=== PATIENT | female | born 1945 | race African-American/Black ===

== ENCOUNTER 2018-03-08 17:21 | Emergency (ER) | payer OTHER, MEDICAID ==
[~2018-03-08] VITALS: Ht 162.6 cm; Wt 60.0 kg
[2018-03-08] MEDS ORDERED: ATOR10TA69 PO (17:27)
[2018-03-08] MEDS ORDERED: ASPI-986 PO (17:27)
[2018-03-08] MEDS ORDERED: SODIUM CHLORIDE 0.9% 1000ML BAG (SEPSIS BOLUS) IV ONE (18:00)
[2018-03-08 18:20] LABS: CHLORIDE 107 mEq/L (98-107)
[2018-03-08 18:25] LABS: EOSINOPHILS % 1.8 % (0.0-5.0); HEMATOCRIT. 33.8 % (36.0-48.0); HEMOGLOBIN. 10.8 g/dL (12.0-16.0); LYMPHOCYTES % 9.3 % (20.0-50.0); MEAN CORPUSCULAR HEMOGLOBIN 27.3 pg (28.0-32.0); MEAN CORPUSCULAR VOLUME 85.1 fL (81.0-99.0); MEAN PLATELET VOLUME 8.5 fl (7.4-10.4); NEUTROPHILS % 77.9 % (40.0-76.0); PLATELET 184 x1000/uL (130-400); RED BLOOD CELL COUNT 3.97 mill/uL (4.2-5.4)
[2018-03-08] MEDS ORDERED: SODIUM CHLORIDE 0.9% 250 ML IV NR (19:10)
[2018-03-08 19:49] LABS: PARTIAL THROMBOPLASTIN TIME 33.6 sec (23.4-31.0); PROTHROMBIN TIME 10.5 sec (9.4-11.6)
[2018-03-08 22:49] VITALS: BP 94/89
== END 2018-03-08 22:51 | disposition home or self-care (01) ==
LOC: ER 17:46
DX: I95.9 Hypotension, unspecified (principal); I12.0 Hypertensive chronic kidney disease with stage 5 chronic kidney disease or end stage renal disease; N18.6 End stage renal disease; E78.00 Pure hypercholesterolemia, unspecified; I44.0 Atrioventricular block, first degree; D63.1 Anemia in chronic kidney disease; J45.909 Unspecified asthma, uncomplicated; Z88.8 Allergy status to other drugs, medicaments and biological substances; Z99.2 Dependence on renal dialysis; W05.0XXA Fall from non-moving wheelchair, initial encounter; Y93.89 Activity, other specified; Y92.89 Other specified places as the place of occurrence of the external cause
CPT/HCPCS: 36415; 70450; 71045; 80053; 83605; 83880; 84484; 85025; 85610; 85730; 86850; 86900; 86901; 87040; 87086; 93005; 99285; J7030

== ENCOUNTER 2018-08-03 15:39 | Inpatient (IN) | payer OTHER, MEDICAID ==
[~2018-08-03] VITALS: Ht 170.2 cm; Wt 78.0 kg
[~2018-08-03 15:39] MED LIST: ASPI-986 PO; ATOR10TA69 PO
[2018-08-03 16:56] LABS: BASOPHILS % 1.2 % (0.0-2.0); EOSINOPHILS % 1.1 % (0.0-5.0); HEMATOCRIT. 40.3 % (36.0-48.0); HEMOGLOBIN. 12.6 g/dL (12.0-16.0); LYMPHOCYTES % 16.5 % (20.0-50.0); MEAN CORPUSCULAR HEMOGLOBIN 28.1 pg (28.0-32.0); MEAN CORPUSCULAR VOLUME 90.2 fL (81.0-99.0); MEAN PLATELET VOLUME 8.9 fl (7.4-10.4); MONOCYTES % 14.8 % (2.0-8.0); NEUTROPHILS % 66.4 % (40.0-76.0); PLATELET 111 x1000/uL (130-400); RED BLOOD CELL COUNT 4.47 mill/uL (4.2-5.4); RED CELL DISTRIBUTION WIDTH 15.4 % (11.6-14.6)
[2018-08-03 17:03] LABS: CHLORIDE 101 mEq/L (98-107)
[2018-08-03 17:05] LABS: BG BASE EXCESS 4.4 mmol/L (-2.0-2.0); BG CARBOXYHEMOGLOBIN 1.2 % (0.5-1.5); BG DEOXYHEMOGLOBIN 38.3 % (0.0-5.0); BG HCO3 ACT 28.6 mmol/L (22.0-26.0); BG OXYGEN SATURATION 61.2 % (92.0-98.5); BG OXYHEMOGLOBIN 60.5 % (94.0-97.0); BG PCO2 40.8 mmHg (35.0-45.0); BG PH 7.463 (7.350-7.450); BG PO2 < 30.3 mmHg (75.0-100.0); BG SAMPLE SITE PA LINE; BG TOTAL HEMOGLOBIN 12.3 g/dL (12.0-18.0); BG VENT MODE ROOM AIR
[2018-08-03] MEDS ORDERED: SODIUM CHLORIDE 0.9% 500 ML IV ONE (17:12)
[2018-08-03] MEDS ORDERED: ALBUTEROL (0.083%) 2.5MG/3ML NEB HHN STA (17:12)
[2018-08-03] MEDS ORDERED: VANCOMYCIN 1 G PREMIX 200 ML IV SCH (17:45)
[2018-08-03] MEDS ORDERED: HYDROMORPHONE HCL/PF 2MG/ML CPJ IV PRN ×2 (19:00→19:30)
[2018-08-03 19:09] LABS: INR 1.1; PROTHROMBIN TIME 11.4 sec (9.1-11.1)
[2018-08-03] MEDS ORDERED: HYDROCODONE/ACETAMINOPHEN 10/325MG TABLET PO PRN (19:30)
[2018-08-03] MEDS ORDERED: ONDANSETRON HCL 4MG/2ML INJ IV PRN (19:30)
[2018-08-03] MEDS ORDERED: MAGNESIUM/ALUMINUM HYDROXIDE/SIMETHICONE 30ML UDC PO PRN (19:30)
[2018-08-03] MEDS ORDERED: CLONIDINE 0.1MG TABLET PO PRN (19:30)
[2018-08-03] MEDS ORDERED: ACETAMINOPHEN 325MG TABLET PO PRN (19:30)
[2018-08-03] MEDS ORDERED: DIPHENHYDRAMINE 50MG/ML VIAL IV PRN (19:30)
[2018-08-03 22:44] VITALS: BP 132/56
[2018-08-04] VITALS (27 sets, daily range): BP systolic 61–126; BP diastolic 17–78
[2018-08-04 06:36] LABS: BASOPHILS % 1.3 % (0.0-2.0); EOSINOPHILS % 1.5 % (0.0-5.0); HEMOGLOBIN. 11.9 g/dL (12.0-16.0); LYMPHOCYTES % 20.4 % (20.0-50.0); MEAN CORPUSCULAR VOLUME 89.5 fL (81.0-99.0); MEAN PLATELET VOLUME 8.7 fl (7.4-10.4); MONOCYTES % 10.8 % (2.0-8.0); PLATELET 124 x1000/uL (130-400); RED BLOOD CELL COUNT 4.24 mill/uL (4.2-5.4); RED CELL DISTRIBUTION WIDTH 15.6 % (11.6-14.6)
[2018-08-04 07:03] LABS: CHLORIDE 100 mEq/L (98-107)
[2018-08-04] MEDS ORDERED: LIDOCAINE HCL 1% 20ML VIAL (Pyxis) INJ ONE (08:36)
[2018-08-04] MEDS ORDERED: TRAMADOL 50MG TABLET PO PRN (08:45)
[2018-08-04] MEDS ORDERED: ALBUTEROL 6.7GM HFA INHALER ORI PRN (08:45)
[2018-08-04] MEDS ORDERED: MIDODRINE HCL 5MG TABLET PO SCH (09:00)
[2018-08-04] MEDS ORDERED: LORATADINE 10MG TABLET PO SCH (09:00)
[2018-08-04] MEDS ORDERED: SEVELAMER CARBONATE 800 MG TABLET PO SCH (09:00)
[2018-08-04] MEDS ORDERED: CALCIUM ACETATE 667MG CAPSULE PO SCH (09:00)
[2018-08-04] MEDS ORDERED: TRAM50TA3 PO (09:54)
[2018-08-04] MEDS ORDERED: MIDO5TAB PO (09:54)
[2018-08-04] MEDS ORDERED: SEVE0.8P MT (09:54)
[2018-08-04] MEDS ORDERED: LEVVL SQ (09:54)
[2018-08-04] MEDS ORDERED: SILV50CR31 TP (09:54)
[2018-08-04] MEDS ORDERED: ALBU90AE INH (09:54)
[2018-08-04] MEDS ORDERED: MIRT15TA6 MT (09:54)
[2018-08-04] MEDS ORDERED: LORA10TA7 MT (09:54)
[2018-08-04] MEDS ORDERED: [UNRECOGNIZED DRUG - CODE] MC (09:54)
[2018-08-04] MEDS ORDERED: CALC667C MT (09:54)
[2018-08-04] MEDS ORDERED: ATOR10TA69 MT (09:54)
[2018-08-04] MEDS ORDERED: CINA30 MT (09:54)
[2018-08-04] MEDS ORDERED: ALBUMIN HUMAN 25GM/100ML (25%) IV NR (10:00)
[2018-08-04 10:42] LABS: BG BASE EXCESS -1.1 mmol/L (-2.0-2.0); BG CARBOXYHEMOGLOBIN 0.4 % (0.5-1.5); BG DEOXYHEMOGLOBIN 0.7 % (0.0-5.0); BG FRACTION INSPIRED OXYGEN 34; BG HCO3 ACT 25.3 mmol/L (22.0-26.0); BG METHEMOGLOBIN 0.3 % (0.0-1.5); BG OXYGEN SATURATION 99.3 % (92.0-98.5); BG OXYHEMOGLOBIN 98.6 % (94.0-97.0); BG PO2 188.8 mmHg (75.0-100.0); BG SAMPLE SITE RIGHT FEMORAL; BG TOTAL HEMOGLOBIN 11.9 g/dL (12.0-18.0); BG VENT MODE NASAL CANNULA
[2018-08-04] MEDS: MIDODRINE HCL 5MG TABLET PO SCH ×2 (13:50→17:29)
[2018-08-04] MEDS ORDERED: DEXTROSE 50% WATER 50ML SYRINGE IV PRN (17:00)
[2018-08-04] MEDS ORDERED: CINACALCET HCL 30MG TABLET PO SCH (17:00)
[2018-08-04] MEDS: INSULIN LISPRO 100 UNITS/ML SUBCUT SCH ×2 (17:06→21:00)
[2018-08-04] MEDS: BLOOD SUGAR DIAGNOSTIC STRIP TEST SCH ×2 (17:06→21:45)
[2018-08-04 19:19] LABS: CREATINE KINASE 245 IU/L (26-192); CREATINE KINASE MB FRACTION 1.5 ng/mL (0.5-3.6)
[2018-08-04 19:21] LABS: T4 FREE 1.02 ng/dL (0.76-1.46)
[2018-08-04] MEDS: PHENYLEPHRINE 40 MG in DEXT 5% WATER 246 ML IV PRN (20:45)
[2018-08-04] MEDS ORDERED: ATORVASTATIN CALCIUM 10MG TABLET PO SCH (21:00)
[2018-08-04] MEDS: MIRTAZAPINE 15MG TABLET PO SCH (21:36)
[2018-08-05] VITALS (86 sets, daily range): BP systolic 46–181; BP diastolic 23–113
[2018-08-05 00:50] LABS: BASOPHILS % 1.4 % (0.0-2.0); EOSINOPHILS % 1.7 % (0.0-5.0); HEMATOCRIT. 36.1 % (36.0-48.0); HEMOGLOBIN. 11.3 g/dL (12.0-16.0); LYMPHOCYTES % 13.4 % (20.0-50.0); MEAN CORPUSCULAR HEMOGLOBIN 27.7 pg (28.0-32.0); MEAN CORPUSCULAR VOLUME 88.5 fL (81.0-99.0); MEAN PLATELET VOLUME 8.8 fl (7.4-10.4); MONOCYTES % 10.7 % (2.0-8.0); NEUTROPHILS % 72.8 % (40.0-76.0); PLATELET 166 x1000/uL (130-400); RED BLOOD CELL COUNT 4.07 mill/uL (4.2-5.4); RED CELL DISTRIBUTION WIDTH 15.5 % (11.6-14.6)
[2018-08-05 00:59] LABS: CHLORIDE 103 mEq/L (98-107)
[2018-08-05 01:07] LABS: CREATINE KINASE 252 IU/L (26-192)
[2018-08-05 01:08] LABS: CREATINE KINASE MB FRACTION 1.4 ng/mL (0.5-3.6)
[2018-08-05] MEDS: PHENYLEPHRINE 40 MG in DEXT 5% WATER 246 ML IV PRN ×3 (06:36→22:51)
[2018-08-05] MEDS: BLOOD SUGAR DIAGNOSTIC STRIP TEST SCH ×4 (07:50→21:00)
[2018-08-05] MEDS: INSULIN LISPRO 100 UNITS/ML SUBCUT SCH ×4 (08:20→21:00)
[2018-08-05] MEDS: LORAZEPAM 2MG/ML CPJ IV PRN ×2 (09:45→16:31)
[2018-08-05] MEDS ORDERED: SODIUM CHLORIDE 0.9% 500 ML IV ONE ×2 (09:45→20:15)
[2018-08-05] MEDS: MIDODRINE HCL 5MG TABLET PO SCH ×3 (10:05→18:06)
[2018-08-05] MEDS ORDERED: SODIUM CHLORIDE 0.9% 500 ML IV NR (10:15)
[2018-08-05 16:06] LABS: CREATINE KINASE 184 IU/L (26-192)
[2018-08-05 16:11] LABS: CREATINE KINASE MB FRACTION 1.2 ng/mL (0.5-3.6)
[2018-08-05] MEDS ORDERED: SODIUM CHLORIDE 0.9% 500 ML IV SCH (17:15)
[2018-08-05] MEDS: MIRTAZAPINE 15MG TABLET PO SCH (21:00)
[2018-08-06] VITALS (93 sets, daily range): BP systolic 48–153; BP diastolic 20–125
[2018-08-06 06:47] LABS: BASOPHILS % 1.2 % (0.0-2.0); EOSINOPHILS % 2.4 % (0.0-5.0); HEMATOCRIT. 37.7 % (36.0-48.0); HEMOGLOBIN. 11.7 g/dL (12.0-16.0); LYMPHOCYTES % 20.2 % (20.0-50.0); MEAN CORPUSCULAR HEMOGLOBIN 27.7 pg (28.0-32.0); MEAN CORPUSCULAR VOLUME 89.2 fL (81.0-99.0); MEAN PLATELET VOLUME 8.9 fl (7.4-10.4); MONOCYTES % 13.4 % (2.0-8.0); NEUTROPHILS % 62.8 % (40.0-76.0); PLATELET 135 x1000/uL (130-400); RED BLOOD CELL COUNT 4.23 mill/uL (4.2-5.4); RED CELL DISTRIBUTION WIDTH 15.5 % (11.6-14.6)
[2018-08-06 07:40] LABS: PHOSPHORUS 4.5 mg/dL (2.5-4.9)
[2018-08-06] MEDS: BLOOD SUGAR DIAGNOSTIC STRIP TEST SCH ×4 (07:48→21:34)
[2018-08-06] MEDS: INSULIN LISPRO 100 UNITS/ML SUBCUT SCH ×4 (07:48→21:00)
[2018-08-06] MEDS: PHENYLEPHRINE 40 MG in DEXT 5% WATER 246 ML IV PRN (09:18)
[2018-08-06] MEDS: MIDODRINE HCL 5MG TABLET PO SCH ×3 (09:23→17:45)
[2018-08-06] MEDS: FLUDROCORTISONE ACETATE 0.1MG TABLET PO SCH (17:45)
[2018-08-06] MEDS: MIRTAZAPINE 15MG TABLET PO SCH (21:28)
[2018-08-07] VITALS (75 sets, daily range): BP systolic 89–206; BP diastolic 21–103
[2018-08-07] MEDS: BLOOD SUGAR DIAGNOSTIC STRIP TEST SCH ×4 (07:50→21:00)
[2018-08-07] MEDS: INSULIN LISPRO 100 UNITS/ML SUBCUT SCH ×4 (08:20→21:00)
[2018-08-07] MEDS: FLUDROCORTISONE ACETATE 0.1MG TABLET PO SCH (09:23)
[2018-08-07] MEDS: MIDODRINE HCL 5MG TABLET PO SCH ×3 (09:23→21:11)
[2018-08-07 10:12] LABS: BASOPHILS % 0.2 % (0.0-2.0); EOSINOPHILS % 3.5 % (0.0-5.0); HEMATOCRIT. 36.9 % (36.0-48.0); HEMOGLOBIN. 11.7 g/dL (12.0-16.0); LYMPHOCYTES % 25.4 % (20.0-50.0); MEAN CORPUSCULAR HEMOGLOBIN 28.2 pg (28.0-32.0); MEAN CORPUSCULAR VOLUME 88.7 fL (81.0-99.0); MEAN PLATELET VOLUME 9.1 fl (7.4-10.4); MONOCYTES % 12.6 % (2.0-8.0); NEUTROPHILS % 58.3 % (40.0-76.0); PLATELET 144 x1000/uL (130-400); RED BLOOD CELL COUNT 4.16 mill/uL (4.2-5.4); RED CELL DISTRIBUTION WIDTH 15.5 % (11.6-14.6)
[2018-08-07] MEDS ORDERED: MIDODRINE HCL 5MG TABLET PO SCH (15:02)
[2018-08-07] MEDS: MIRTAZAPINE 15MG TABLET PO SCH (21:11)
[2018-08-08] VITALS (51 sets, daily range): BP systolic 72–175; BP diastolic 22–128
[2018-08-08] MEDS: MIDODRINE HCL 5MG TABLET PO SCH ×3 (06:51→21:15)
[2018-08-08] MEDS: BLOOD SUGAR DIAGNOSTIC STRIP TEST SCH ×4 (06:56→21:15)
[2018-08-08] MEDS: INSULIN LISPRO 100 UNITS/ML SUBCUT SCH ×4 (06:56→21:00)
[2018-08-08 07:16] LABS: HEMATOCRIT. 34.7 % (36.0-48.0); HEMOGLOBIN. 11.1 g/dL (12.0-16.0); MEAN CORPUSCULAR HEMOGLOBIN 28.5 pg (28.0-32.0); MEAN CORPUSCULAR VOLUME 89.1 fL (81.0-99.0); RED CELL DISTRIBUTION WIDTH 15.7 % (11.6-14.6)
[2018-08-08 08:03] LABS: PLATELET 142 x1000/uL (130-400)
[2018-08-08] MEDS ORDERED: SODIUM BICARBONATE 8.4% 1 MEQ/ML 50ML SYR IV SCH (08:51)
[2018-08-08] MEDS ORDERED: DEXTROSE 50% WATER 50ML SYRINGE IV SCH (09:00)
[2018-08-08] MEDS ORDERED: PHENYLEPHRINE 10 MG in DEXT 5% WATER 249 ML IV PRN (09:00)
[2018-08-08] MEDS ORDERED: INSULIN REGULAR (HUMULIN R) 300UNITS/3ML IV SCH (09:00)
[2018-08-08] MEDS: FLUDROCORTISONE ACETATE 0.1MG TABLET PO SCH (09:08)
[2018-08-08] MEDS: PHENYLEPHRINE 40 MG in DEXT 5% WATER 246 ML IV PRN (10:46)
[2018-08-08 14:27] LABS: PLATELET ESTIMATE NORMAL
[2018-08-08] MEDS: MIRTAZAPINE 15MG TABLET PO SCH (21:15)
== END 2018-08-08 22:45 | disposition short-term general hospital (02) | DRG 189 ==
LOC: ER 15:44 → EDBEDREQ 17:22 → SUPCPDRO 19:15 → ENRESERV 21:07 → 5EST 22:10 → CVICU 08-04 10:03
PROVIDERS: ADMIT Hospitalist; ATTEND Hospitalist
PROC: 5A1D70Z Performance of Urinary Filtration, Intermittent, Less than 6 Hours Per Day (ICD-10-PCS; 2018-08-04)
PROC: 05HY33Z Insertion of Infusion Device into Upper Vein, Percutaneous Approach (ICD-10-PCS; 2018-08-04)
PROC: B54NZZA Ultrasonography of Left Upper Extremity Veins, Guidance (ICD-10-PCS; 2018-08-04)
PROC: 5A1D70Z Performance of Urinary Filtration, Intermittent, Less than 6 Hours Per Day (ICD-10-PCS; 2018-08-07)
PROC: 5A1D70Z Performance of Urinary Filtration, Intermittent, Less than 6 Hours Per Day (ICD-10-PCS; principal; 2018-08-08)
DX: J96.01 Acute respiratory failure with hypoxia (principal); N18.6 End stage renal disease; I50.30 Unspecified diastolic (congestive) heart failure; I13.2 Hypertensive heart and chronic kidney disease with heart failure and with stage 5 chronic kidney disease, or end stage renal disease; E44.1 Mild protein-calorie malnutrition; E87.2 Acidosis; L97.819 Non-pressure chronic ulcer of other part of right lower leg with unspecified severity; I95.3 Hypotension of hemodialysis; I95.9 Hypotension, unspecified; D69.6 Thrombocytopenia, unspecified; E78.5 Hyperlipidemia, unspecified; D72.819 Decreased white blood cell count, unspecified; Z89.421 Acquired absence of other right toe(s); E11.622 Type 2 diabetes mellitus with other skin ulcer; E87.5 Hyperkalemia; E11.22 Type 2 diabetes mellitus with diabetic chronic kidney disease; E11.51 Type 2 diabetes mellitus with diabetic peripheral angiopathy without gangrene; E83.39 Other disorders of phosphorus metabolism; Z86.73 Personal history of transient ischemic attack (TIA), and cerebral infarction without residual deficits; Z99.2 Dependence on renal dialysis; Z68.26 Body mass index [BMI] 26.0-26.9, adult; Z88.0 Allergy status to penicillin; Z88.6 Allergy status to analgesic agent; Z79.82 Long term (current) use of aspirin; Z79.899 Other long term (current) drug therapy
CPT/HCPCS: 36415; 36569; 36600; 71045; 76937; 78580; 80048; 80061; 82375; 82550; 82553; 82805; 82962; 83036; 83605; 83735; 83880; 84100; 84439; 84443; 84484; 85379; 86850; 86900; 93005; 93306; 93923; 93970; 94640; 96365; 96366; 96375; 99291; C1725; C1769; C1893; J1170; J2060; J2370; J3370; J3490; J7040; J7050; J7060; J7611; P9047

== ENCOUNTER 2018-09-27 19:13 | Emergency (ER) | payer OTHER, MEDICAID ==
[~2018-09-27] VITALS: Ht 165.1 cm; Wt 61.0 kg
[~2018-09-27 19:13] MED LIST changes: +ALBU90AE INH; +ATOR10TA69 MT; +CALC667C MT; +CINA30 MT; +LEVVL SQ; +LORA10TA7 MT; +MIDO5TAB PO; +MIRT15TA6 MT; +SEVE0.8P MT; +SILV50CR31 TP; +TRAM50TA3 PO; +[UNRECOGNIZED DRUG - CODE] MC
[2018-09-27] MEDS ORDERED: SODIUM CHLORIDE 0.9% 1,000 ML IV ONE (19:46)
[2018-09-27 20:52] LABS: BASOPHILS % 1.2 % (0.0-2.0); EOSINOPHILS % 1.3 % (0.0-5.0); HEMATOCRIT. 32.3 % (36.0-48.0); HEMOGLOBIN. 9.7 g/dL (12.0-16.0); LYMPHOCYTES % 12.1 % (20.0-50.0); MEAN CORPUSCULAR HEMOGLOBIN 25.5 pg (28.0-32.0); MEAN CORPUSCULAR VOLUME 84.5 fL (81.0-99.0); MEAN PLATELET VOLUME 8.9 fl (7.4-10.4); MONOCYTES % 9.7 % (2.0-8.0); NEUTROPHILS % 75.7 % (40.0-76.0); PLATELET 283 x1000/uL (130-400); RED BLOOD CELL COUNT 3.81 mill/uL (4.2-5.4); RED CELL DISTRIBUTION WIDTH 17.3 % (11.6-14.6)
[2018-09-27 20:57] LABS: CHLORIDE 107 mEq/L (98-107)
[2018-09-27] MEDS ORDERED: VANCOMYCIN 1 G PREMIX 200 ML IV SCH (21:30)
[2018-09-27] MEDS ORDERED: LEVOFLOXACIN 750MG PREMIX 150 ML IV ONE (21:30)
[2018-09-27] MEDS ORDERED: SODIUM CHLORIDE 0.9% 500 ML IV ONE (22:00)
[2018-09-27 23:10] VITALS: BP 115/52
== END 2018-09-28 00:09 | disposition short-term general hospital (02) ==
LOC: ER 19:25
DX: I95.3 Hypotension of hemodialysis (principal); E11.22 Type 2 diabetes mellitus with diabetic chronic kidney disease; N18.6 End stage renal disease; E11.52 Type 2 diabetes mellitus with diabetic peripheral angiopathy with gangrene; I96 Gangrene, not elsewhere classified; Z86.73 Personal history of transient ischemic attack (TIA), and cerebral infarction without residual deficits; Z99.2 Dependence on renal dialysis; Z79.4 Long term (current) use of insulin; Z79.899 Other long term (current) drug therapy; Z88.0 Allergy status to penicillin; Z88.8 Allergy status to other drugs, medicaments and biological substances; Z89.429 Acquired absence of other toe(s), unspecified side
CPT/HCPCS: 36415; 71045; 80053; 83605; 85025; 87040; 93005; 96361; 96365; 96375; 99285; J1956; J3370; J7030; J7040